=== PATIENT | male | born 1955 | race Caucasian/White ===

== ENCOUNTER 2016-05-08 12:22 | Emergency (ER) | payer BC ==
[~2016-05-08] VITALS: Ht 188 cm; Wt 88.9 kg
[~2016-05-08 12:22] MED LIST: ALPRAZOLAM0.25 M2 PO; AUGMENTIN875 MG PO; GLYBURIDE5 MG PO; LISINOPRIL2.5 MG PO; MOTRIN800 MG PO; PANTOPRAZOLE SO40 MG PO; QUETIAPINE FUMA25 MG PO; TOBREX5 ML LEFT EYE; XANAX0.25 MG PO; ZESTRIL2.5 MG PO
[2016-05-08] MEDS ORDERED: METFORMIN HCL500 MG PO (14:49)
[2016-05-08 16:01] LABS: INFLUENZA A VIRAL ANTIGEN POSITIVE; INFLUENZA B VIRAL ANTIGEN NEGATIVE
[2016-05-08 16:35] VITALS: BP 107/62
== END 2016-05-08 16:35 | disposition home or self-care (01) ==
LOC: EME 12:22
PROVIDERS: Physician Assistant
DX: J10.1 Influenza due to other identified influenza virus with other respiratory manifestations (principal); I10 Essential (primary) hypertension; E11.9 Type 2 diabetes mellitus without complications
CPT/HCPCS: 71020; 87502; 99281; 99284